=== PATIENT | male | born 1995 | race Caucasian/White ===

== ENCOUNTER 2020-08-11 15:42 | Emergency (ER) | payer SELFPAY | END 2020-08-11 16:34 | disposition home or self-care (01) | LOC: CSHERS 15:42 | DX: L02.414 Cutaneous abscess of left upper limb (principal); L03.114 Cellulitis of left upper limb; F17.210 Nicotine dependence, cigarettes, uncomplicated; Z79.899 Other long term (current) drug therapy | CPT/HCPCS: 99282 ==

== ENCOUNTER 2020-12-04 12:31 | Emergency (ER) | payer SELFPAY ==
[2020-12-04 14:06] LABS: #Basophils 0.1 10x3/uL (0.0-0.2); #Eosinphils 0.1 10x3/uL (0.0-0.5); #Monocytes 0.8 10x3/uL (0.0-1.1); #Neutrophils 6.2 10x3/uL (1.5-8.4); %Basophils 0.8 % (0.0-2.0); %Eosinophils 1.4 % (0.0-6.0); %Lymphocytes 20.6 % (18.0-47.0); %Monocytes 8.4 % (0.0-10.0); %Neutrophils 68.2 % (40.0-75.0); Hemoglobin 15.5 g/dL (13.5-17.5); Mean Corpuscular HGB CONC 34.6 g/dL (32.0-36.0); Mean Corpuscular Hemoglobin 33.1 pg (27.0-33.0); Mean Corpuscular Volume 95.7 fl (81.2-95.1); Mean Platelet Volume 10.7 fl (7.4-10.4); Platelet Count 230 10x3/uL (150-450); RBC Distribution Width 12.4 % (11.5-14.5); Red Blood Cell (RBC) Count 4.68 10x6/uL (4.32-5.72); White Blood Cell (WBC) Count 9.1 10x3/uL (3.5-10.5)
[2020-12-04 14:22] LABS: ALT (SGPT) 144 U/L (8-55); AST (SGOT) 65 U/L (5-34); Albumin 4.1 g/dL (3.5-5.0); Alkaline Phosphatase 90 U/L (40-110); Anion Gap 13 mmol/L (10-20); BUN (Urea Nitrogen) 11 mg/dL (8.9-20.6); Bilirubin, Total 0.4 mg/dL (0.2-1.2); Calc. Creatinine Clearance 0 mL/min (70-130); Calcium 9.6 mg/dL (7.8-10.44); Carbon Dioxide 25 mmol/L (22-29); Chloride 106 mmol/L (98-107); Globulin 2.7 g/dL (2.4-3.5); Glucose 108 mg/dL (70-105); Potassium 4.1 mmol/L (3.5-5.1); Protein, Total 6.8 g/dL (6.0-8.3); Sodium 140 mmol/L (136-145)
[2020-12-04] MEDS ORDERED: Ventolin HFA Inhaler 60 PUFF INHALER ONE (14:45)
[2020-12-04] MEDS ORDERED: predniSONE 20 MG TAB ONE (14:45)
[2020-12-04 15:51] LABS: SARS-CoV-2 NAA Rapid Test Not Detected (NotDetected)
== END 2020-12-04 15:32 | disposition home or self-care (01) ==
LOC: CSHERS 12:31
DX: J45.901 Unspecified asthma with (acute) exacerbation (principal); Z20.822 Contact with and (suspected) exposure to COVID-19; F17.200 Nicotine dependence, unspecified, uncomplicated
CPT/HCPCS: 36415; 71045; 80053; 85025; 87804; 93005; J7512; U0002

== ENCOUNTER 2021-12-08 11:54 | Emergency (ER) | payer SELFPAY | END 2021-12-08 13:11 | disposition home or self-care (01) | LOC: CSHERS 11:54 | DX: H60.501 Unspecified acute noninfective otitis externa, right ear (principal) | CPT/HCPCS: 99282 ==

== ENCOUNTER 2022-03-06 14:48 | Emergency (ER) | payer SELFPAY ==
[2022-03-06] MEDS ORDERED: Morphine 4 MG/ML VIAL ONE (15:27)
[2022-03-06] MEDS ORDERED: Ondansetron PF 4 MG/2 ML Vial ONE (15:27)
[2022-03-06] MEDS ORDERED: Ketorolac Tromethamine 30 MG/ML VIAL ONE (15:27)
[2022-03-06 15:34] LABS: #Basophils 0.1 10x3/uL (0.0-0.2); #Monocytes 0.5 10x3/uL (0.0-1.1); %Basophils 0.5 % (0.0-2.0); %Eosinophils 0.2 % (0.0-6.0); %Lymphocytes 9.9 % (18.0-47.0); %Monocytes 3.6 % (0.0-10.0); %Neutrophils 85.3 % (40.0-75.0); Hemoglobin 16.3 g/dL (13.5-17.5); Mean Corpuscular HGB CONC 35.1 g/dL (32.0-36.0); Mean Corpuscular Hemoglobin 32.6 pg (27.0-33.0); Mean Corpuscular Volume 92.8 fl (81.2-95.1); Mean Platelet Volume 10.5 fl (7.4-10.4); Platelet Count 218 10x3/uL (150-450); RBC Distribution Width 12.2 % (11.5-14.5); White Blood Cell (WBC) Count 12.9 10x3/uL (3.5-10.5)
[2022-03-06 15:48] LABS: ALT (SGPT) 120 U/L (8-55); AST (SGOT) 52 U/L (5-34); Albumin 4.8 g/dL (3.5-5.0); Alkaline Phosphatase 112 U/L (40-110); Anion Gap 19 mmol/L (10-20); BUN (Urea Nitrogen) 17 mg/dL (8.9-20.6); Bilirubin, Total 0.5 mg/dL (0.2-1.2); Calc. Creatinine Clearance 0 mL/min (70-130); Calcium 9.5 mg/dL (7.8-10.44); Carbon Dioxide 20 mmol/L (22-29); Chloride 105 mmol/L (98-107); Estimated GFR 95; Globulin 2.7 g/dL (2.4-3.5); Glucose 132 mg/dL (70-105); Lipase 19 U/L (8-78); Potassium 4.3 mmol/L (3.5-5.1); Protein, Total 7.5 g/dL (6.0-8.3); Sodium 140 mmol/L (136-145)
[2022-03-06 17:00] LABS: Bilirubin Neg (Negative); Blood, Urine 250 (Negative); Clarity Clear (Clear); Glucose, Urine (Dipstick) Normal (Negative); Ketone, Urine 15 mg/dL (Negative); Leukocyte Negative (Negative); Nitrite Negative (Negative); Protein, Urine (Dipstick) 15 mg/dl (Neg-Trace); Specific Gravity, Urine 1.015 (1.005-1.030); Urobilinogen Normal mg/dL (Less than 2)
[2022-03-06 17:04] LABS: Bacteria/HPF None Seen HPF (None Seen); Squamous Epithelial 0-3 HPF (0-3); WBC/HPF 0-3 HPF (0-3)
== END 2022-03-06 17:31 | disposition home or self-care (01) ==
LOC: CSHERS 14:48
DX: N20.0 Calculus of kidney (principal)
CPT/HCPCS: 74176; 80053; 81003; 81015; 83690; 85025; 96361; 96374; 96375; J1885; J2270; J2405

== ENCOUNTER 2022-12-18 11:38 | Emergency (ER) | payer BC, SELFPAY ==
[2022-12-18] MEDS ORDERED: Ketorolac Tromethamine 30 MG/ML VIAL ONE (12:52)
[2022-12-18] MEDS ORDERED: cefTRIAXone (ROCEPHIN) 1 GM VIAL ONE (12:53)
[2022-12-18] MEDS ORDERED: Acetaminophen 500 MG TAB ONE ×3 (12:55→13:07)
[2022-12-18 13:02] LABS: #Basophils 0.1 10x3/uL (0.0-0.2); #Monocytes 0.8 10x3/uL (0.0-1.1); #Neutrophils 6.5 10x3/uL (1.5-8.4); %Basophils 0.6 % (0.0-2.0); %Eosinophils 0.5 % (0.0-6.0); %Monocytes 9.2 % (0.0-10.0); %Neutrophils 79.1 % (40.0-75.0); Hematocrit 44.2 % (38.8-50.0); Hemoglobin 15.6 g/dL (13.5-17.5); Mean Corpuscular HGB CONC 35.3 g/dL (32.0-36.0); Mean Corpuscular Hemoglobin 32.4 pg (27.0-33.0); Mean Corpuscular Volume 91.9 fl (81.2-95.1); Mean Platelet Volume 10.6 fl (7.4-10.4); Platelet Count 171 10x3/uL (150-450); RBC Distribution Width 11.6 % (11.5-14.5); Red Blood Cell (RBC) Count 4.81 10x6/uL (4.32-5.72); White Blood Cell (WBC) Count 8.2 10x3/uL (3.5-10.5)
[2022-12-18 13:17] LABS: ALT (SGPT) 118 U/L (8-55); AST (SGOT) 58 U/L (5-34); Albumin 4.2 g/dL (3.5-5.0); Alkaline Phosphatase 95 U/L (40-110); Anion Gap 16 mmol/L (10-20); BUN (Urea Nitrogen) 11 mg/dL (8.9-20.6); Bilirubin, Total 0.9 mg/dL (0.2-1.2); Calc. Creatinine Clearance 0 mL/min (70-130); Calcium 9.4 mg/dL (7.8-10.44); Carbon Dioxide 21 mmol/L (22-29); Chloride 101 mmol/L (98-107); Estimated GFR 98; Globulin 3.3 g/dL (2.4-3.5); Glucose 119 mg/dL (70-105); Lipase 18 U/L (8-78); Potassium 4.3 mmol/L (3.5-5.1); Protein, Total 7.5 g/dL (6.0-8.3); Sodium 134 mmol/L (136-145)
== END 2022-12-18 14:03 | disposition home or self-care (01) ==
LOC: CSHERS 11:38
DX: S02.5XXA Fracture of tooth (traumatic), initial encounter for closed fracture (principal); K04.7 Periapical abscess without sinus; F17.290 Nicotine dependence, other tobacco product, uncomplicated
CPT/HCPCS: 36415; 80053; 83605; 83690; 85025; 87040; 93005; 96361; 96365; 96375; J0696; J1885

== ENCOUNTER 2023-03-28 14:11 | Emergency (ER) | payer BC ==
[~2023-03-28 14:11] MED LIST: Iopamidol 300 61% 100 ML VIAL FS ONE
[2023-03-28] MEDS ORDERED: Ketorolac Tromethamine 30 MG/ML VIAL ONE (14:42)
[2023-03-28] MEDS ORDERED: Piperacillin/Tazobactam 3.375 GM VIAL ONE (14:42)
[2023-03-28] MEDS ORDERED: Morphine 4 MG/ML VIAL ONE (14:42)
[2023-03-28 14:53] LABS: #Basophils 0.1 10x3/uL (0.0-0.2); #Eosinphils 0.1 10x3/uL (0.0-0.5); #Monocytes 0.9 10x3/uL (0.0-1.1); %Basophils 0.8 % (0.0-2.0); %Eosinophils 0.3 % (0.0-6.0); %Lymphocytes 9.3 % (18.0-47.0); %Neutrophils 83.2 % (40.0-75.0); Hematocrit 42.2 % (38.8-50.0); Hemoglobin 14.8 g/dL (13.5-17.5); Mean Corpuscular HGB CONC 35.1 g/dL (32.0-36.0); Mean Corpuscular Hemoglobin 32.8 pg (27.0-33.0); Mean Corpuscular Volume 93.6 fl (81.2-95.1); Mean Platelet Volume 10.3 fl (7.4-10.4); Platelet Count 209 10x3/uL (150-450); Red Blood Cell (RBC) Count 4.51 10x6/uL (4.32-5.72); White Blood Cell (WBC) Count 14.4 10x3/uL (3.5-10.5)
[2023-03-28 15:15] LABS: ALT (SGPT) 173 U/L (8-55); AST (SGOT) 116 U/L (5-34); Albumin 4.2 g/dL (3.5-5.0); Alkaline Phosphatase 98 U/L (40-110); Anion Gap 17 mmol/L (10-20); BUN (Urea Nitrogen) 8 mg/dL (8.9-20.6); Bilirubin, Total 0.7 mg/dL (0.2-1.2); Calc. Creatinine Clearance 0 mL/min (70-130); Calcium 9.5 mg/dL (7.8-10.44); Carbon Dioxide 22 mmol/L (22-29); Chloride 104 mmol/L (98-107); Estimated GFR 87; Globulin 3.1 g/dL (2.4-3.5); Glucose 142 mg/dL (70-105); Lipase 20 U/L (8-78); Magnesium 1.4 mg/dL (1.6-2.6); Potassium 3.9 mmol/L (3.5-5.1); Protein, Total 7.3 g/dL (6.0-8.3); Sodium 139 mmol/L (136-145)
[2023-03-28 16:00] LABS: SARS-CoV-2 NAA Rapid Test Not Detected (NotDetected)
== END 2023-03-28 17:45 | disposition home or self-care (01) ==
LOC: CSHERS 14:11
DX: R10.9 Unspecified abdominal pain (principal); Z20.822 Contact with and (suspected) exposure to COVID-19; F17.290 Nicotine dependence, other tobacco product, uncomplicated
CPT/HCPCS: 36415; 74177; 80053; 83605; 83690; 83735; 85025; 87040; 93005; 96361; 96374; 96375; J1885; J2270; J2543; Q9967

== ENCOUNTER 2025-01-04 10:02 | Emergency (ER) | payer SELFPAY ==
[2025-01-04] MEDS ORDERED: Acetaminophen 500 MG TAB ONE (10:58)
[2025-01-04 11:28] LABS: #Basophils 0.05 10x3/uL (0.0-0.2); #Eosinophils 0.03 10x3/uL (0.0-0.5); #Monocytes 0.86 10x3/uL (0.0-1.1); #Neutrophils 6.87 10x3/uL (1.5-8.4); %Basophils 0.6 % (0.0-2.0); %Eosinophils 0.3 % (0.0-6.0); %Lymphocytes 10.0 % (18.0-47.0); %Monocytes 9.9 % (0.0-10.0); %Neutrophils 78.6 % (40.0-75.0); Hematocrit 40.9 % (38.8-50.0); Hemoglobin 14.2 g/dL (13.5-17.5); Mean Corpuscular Hemoglobin 34.7 pg (27.0-33.0); Mean Corpuscular Volume 100.0 fL (81.2-95.1); Platelet Count 161 10x3/uL (150-450); Red Blood Cell (RBC) Count 4.09 10x6/uL (4.32-5.72); White Blood Cell (WBC) Count 8.73 10x3/uL (3.5-10.5)
[2025-01-04 11:42] LABS: ALT (SGPT) 77 U/L (Less than 45); AST (SGOT) 188 U/L (11-34); Albumin 3.5 g/dL (3.1-4.5); Alkaline Phosphatase 184 U/L (40-110); Anion Gap 19 mmol/L (10-20); BUN (Urea Nitrogen) 6 mg/dL (8.9-20.6); Bilirubin, Total 1.5 mg/dL (0.3-1.2); Calc. Creatinine Clearance 0 mL/min (70-130); Calcium 8.6 mg/dL (7.8-10.44); Carbon Dioxide 22 mmol/L (22-29); Chloride 98 mmol/L (98-107); Globulin 4.4 g/dL (2.4-3.5); Glucose 122 mg/dL (70-105); Potassium 3.9 mmol/L (3.5-5.1); Sodium 135 mmol/L (136-145)
[2025-01-04 12:39] LABS: Glucose, Urine (Dipstick) Normal (Negative); Leukocyte 25 (Negative); Protein, Urine (Dipstick) 100 mg/dl (Neg-Trace); Specific Gravity, Urine 1.010 (1.005-1.030)
[2025-01-04 12:46] LABS: CAUTI Indications for Culture Fever or rigors; RBC/HPF 0-3 HPF (0-3); WBC/HPF 0-3 HPF (0-3)
[2025-01-04 12:47] LABS: Bacteria/HPF None Seen HPF (None Seen)
[2025-01-04 12:48] LABS: Urine Culture Reflex No No
[2025-01-04] MEDS ORDERED: Ketorolac Tromethamine 30 MG (1 mL) VIAL ONE (12:57)
[2025-01-04] MEDS ORDERED: Ondansetron PF 4 MG/2 ML Vial ONE (12:57)
== END 2025-01-04 14:35 | disposition home or self-care (01) ==
LOC: CSHERS 10:02
DX: A41.9 Sepsis, unspecified organism (principal); B34.9 Viral infection, unspecified; E86.0 Dehydration; F17.290 Nicotine dependence, other tobacco product, uncomplicated
CPT/HCPCS: 36415; 71045; 74176; 80053; 81001; 83605; 83690; 85025; 87040; 87426; 96361; 96374; 96375; J1885; J2405

== ENCOUNTER 2025-01-05 07:01 | Inpatient (IN) | payer SELFPAY ==
[2025-01-05] MEDS ORDERED: Cefepime 2 GM VIAL ONE (07:34)
[2025-01-05] MEDS ORDERED: Ketorolac Tromethamine 30 MG (1 mL) VIAL ONE (07:34)
[2025-01-05 07:48] LABS: #Basophils Less than 0.03 10x3/uL (0.0-0.2); #Eosinophils 0.04 10x3/uL (0.0-0.5); #Monocytes 0.51 10x3/uL (0.0-1.1); #Neutrophils 6.34 10x3/uL (1.5-8.4); %Basophils 0.3 % (0.0-2.0); %Eosinophils 0.5 % (0.0-6.0); %Lymphocytes 5.6 % (18.0-47.0); %Monocytes 6.9 % (0.0-10.0); %Neutrophils 86.2 % (40.0-75.0); Hematocrit 38.5 % (38.8-50.0); Hemoglobin 13.2 g/dL (13.5-17.5); Mean Corpuscular Hemoglobin 34.5 pg (27.0-33.0); Mean Corpuscular Volume 100.5 fL (81.2-95.1); Platelet Count 136 10x3/uL (150-450); Red Blood Cell (RBC) Count 3.83 10x6/uL (4.32-5.72); White Blood Cell (WBC) Count 7.36 10x3/uL (3.5-10.5)
[2025-01-05 07:59] LABS: ALT (SGPT) 71 U/L (Less than 45); AST (SGOT) 204 U/L (11-34); Albumin 3.2 g/dL (3.1-4.5); Alkaline Phosphatase 154 U/L (40-110); Anion Gap 20 mmol/L (10-20); BUN (Urea Nitrogen) 6 mg/dL (8.9-20.6); Bilirubin, Total 2.0 mg/dL (0.3-1.2); CK (CPK) 502 U/L (30-200); Calc. Creatinine Clearance 0 mL/min (70-130); Calcium 8.0 mg/dL (7.8-10.44); Carbon Dioxide 20 mmol/L (22-29); Chloride 98 mmol/L (98-107); Globulin 4.3 g/dL (2.4-3.5); Glucose 123 mg/dL (70-105); Potassium 3.7 mmol/L (3.5-5.1); Sodium 134 mmol/L (136-145)
[2025-01-05] MEDS ORDERED: Melatonin 3 MG TAB PO PRN (08:48)
[2025-01-05] MEDS ORDERED: Senokot S 8.6-50 MG TAB PO PRN (08:48)
[2025-01-05] MEDS ORDERED: VANCOMYCIN IVPB PRN (08:57)
[2025-01-05] MEDS: Folic Acid 1 MG TAB PO SCH (10:12)
[2025-01-05] MEDS: Multivit, Therapeutic 1 TAB PO SCH (10:12)
[2025-01-05] MEDS: Famotidine/PF 20 mg/2ml Vial SLOW IVP SCH (10:13)
[2025-01-05] MEDS: Vancomycin 1 GM in Sodium Chloride 0.9% 250 ML 300 ML IVPB SCH (10:57)
[2025-01-05] MEDS: VANCOMYCIN 1.25 GM/250 ML BAG 1.25 GM in Premix 1 BAG IVPB SCH (11:30)
[2025-01-05] MEDS: Acetaminophen 325 MG TAB PO PRN (11:43)
[2025-01-05 12:22] LABS: Hep A IgM AB NONREACTIVE (NonReactive); Hep A IgM S/CO 0.18 S/CO (0-0.79); Hep B Core IgM Index 0.13 S/CO (0-0.79); Hep C IgG Ab NONREACTIVE S/CO (NonReactive); Hep C Index 0.10 S/CO (0-0.79)
[2025-01-05] MEDS: Ketorolac Tromethamine 30 MG (1 mL) VIAL IVP PRN (12:48)
[2025-01-05 13:03] LABS: Hep B Surf Ag NONREACTIVE S/CO (NonReactive)
[2025-01-05] MEDS: Ondansetron PF 4 MG/2 ML Vial IVP PRN (17:59)
[2025-01-05] MEDS: VANCOMYCIN 2 GRAM/400 ML BAG 2 GM in Premix 1 BAG IVPB SCH (20:37)
[2025-01-05] MEDS ORDERED: Benzonatate 100 MG CAP PO PRN (20:48)
[2025-01-05] MEDS: guaiFENesin/Codeine Phosphate 100 mg/10 mg 5 ml UD Cup PO PRN (21:05)
[2025-01-06] MEDS: Furosemide 40 MG (4 mL) VIAL SLOW IVP SCH (03:27)
[2025-01-06 03:43] LABS: Vancomycin, Random 26.8 ug/mL (See Comment)
[2025-01-06 03:44] LABS: ALT (SGPT) 71 U/L (Less than 45); AST (SGOT) 213 U/L (11-34); Albumin 3.2 g/dL (3.1-4.5); Alkaline Phosphatase 145 U/L (40-110); Anion Gap 20 mmol/L (10-20); BUN (Urea Nitrogen) 9 mg/dL (8.9-20.6); Bilirubin, Total 1.9 mg/dL (0.3-1.2); CK (CPK) 534 U/L (30-200); Calc. Creatinine Clearance 213 mL/min (70-130); Calcium 8.0 mg/dL (7.8-10.44); Carbon Dioxide 17 mmol/L (22-29); Chloride 102 mmol/L (98-107); Globulin 4.6 g/dL (2.4-3.5); Glucose 77 mg/dL (70-105); Potassium 4.3 mmol/L (3.5-5.1); Sodium 135 mmol/L (136-145)
[2025-01-06] MEDS: Furosemide 40 MG (4 mL) VIAL ONE (03:48)
[2025-01-06 04:10] LABS: Magnesium 1.3 mg/dL (1.6-2.6)
[2025-01-06] MEDS ORDERED: Electrolyte Replacement Protocol 1 EACH FS PRN (04:18)
[2025-01-06 04:52] LABS: Troponin I 0.022 ng/mL (< 0.028)
[2025-01-06] MEDS: Magnesium 2 GM/50 ML(in water) 2 GM in Premix 1 BAG IVPB SCH (04:58)
[2025-01-06 05:04] LABS: INR-International Normal Ratio 1.3; PTT 34.0 sec (22.0-33.0); Prothrombin Time 13.6 sec (9.5-12.1)
[2025-01-06 05:17] LABS: SARS-CoV-2 E Target Negative; SARS-CoV-2 N2 Target Negative; SARS-CoV-2 NAA Rapid Test Not Detected (NotDetected); SARS-CoV-2 RdRP gene Negative
[2025-01-06] MEDS: Vancomycin 1.5 GRAM/300 ML BAG 1.5 GM in Premix 1 BAG IVPB SCH (08:37)
[2025-01-07 03:12] LABS: #Basophils Less than 0.03 10x3/uL (0.0-0.2); #Eosinophils Less than 0.03 10x3/uL (0.0-0.5); #Monocytes 0.46 10x3/uL (0.0-1.1); #Neutrophils 4.66 10x3/uL (1.5-8.4); %Basophils 0.2 % (0.0-2.0); %Eosinophils 0.3 % (0.0-6.0); %Lymphocytes 15.3 % (18.0-47.0); %Monocytes 7.5 % (0.0-10.0); %Neutrophils 76.0 % (40.0-75.0); Hematocrit 35.7 % (38.8-50.0); Hemoglobin 12.1 g/dL (13.5-17.5); Mean Corpuscular Hemoglobin 34.9 pg (27.0-33.0); Mean Corpuscular Volume 102.9 fL (81.2-95.1); Platelet Count 143 10x3/uL (150-450); Red Blood Cell (RBC) Count 3.47 10x6/uL (4.32-5.72); White Blood Cell (WBC) Count 6.13 10x3/uL (3.5-10.5)
[2025-01-07 03:47] LABS: Vancomycin, Random 26.3 ug/mL (See Comment)
[2025-01-07 03:48] LABS: ALT (SGPT) 58 U/L (Less than 45); AST (SGOT) 118 U/L (11-34); Albumin 2.7 g/dL (3.1-4.5); Alkaline Phosphatase 117 U/L (40-110); Anion Gap 12 mmol/L (10-20); BUN (Urea Nitrogen) 17 mg/dL (8.9-20.6); Bilirubin, Total 1.1 mg/dL (0.3-1.2); Calc. Creatinine Clearance 218 mL/min (70-130); Calcium 8.0 mg/dL (7.8-10.44); Carbon Dioxide 24 mmol/L (22-29); Chloride 101 mmol/L (98-107); Globulin 4.1 g/dL (2.4-3.5); Glucose 144 mg/dL (70-105); Magnesium 2.5 mg/dL (1.6-2.6); Potassium 4.1 mmol/L (3.5-5.1); Sodium 133 mmol/L (136-145)
[2025-01-07 05:25] VITALS: BMI 38.6
[2025-01-07] MEDS: Mupirocin 1 GM TUBE TP SCH (08:10)
[2025-01-07] MEDS ORDERED: VANCOMYCIN 1.25 GM/250 ML BAG 1.25 GM in Premix 1 BAG IVPB SCH (09:00)
[2025-01-07] MEDS: Simethicone Chewable 80 MG TAB PO PRN (09:08)
[2025-01-07 10:20] VITALS: BP 126/77
[2025-01-07 12:23] VITALS: TEMP 97.9
[2025-01-08 03:02] LABS: Campy jejuni + coli by PCR Negative (Negative); STEC Shiga Toxin 1+2 Negative (Negative); Salmonella spp. by PCR Negative (Negative); Shigella spp + EIEC by PCR Negative (Negative)
== END 2025-01-07 15:20 | disposition left against medical advice (07) | DRG 872 ==
LOC: CSHERS 07:01 → CSHTELE 08:53 → CSHICU 01-06 05:00 → OBSVTOIN 01-06 09:46
PROVIDERS: ADMIT Internal Medicine; ATTEND Internal Medicine
DX: A41.9 Sepsis, unspecified organism (principal); F10.139 Alcohol abuse with withdrawal, unspecified; K76.0 Fatty (change of) liver, not elsewhere classified; F17.210 Nicotine dependence, cigarettes, uncomplicated; R16.0 Hepatomegaly, not elsewhere classified; E83.42 Hypomagnesemia; Z53.29 Procedure and treatment not carried out because of patient's decision for other reasons; Z87.442 Personal history of urinary calculi; Z71.41 Alcohol abuse counseling and surveillance of alcoholic
CPT/HCPCS: 36415; 71045; 76700; 80053; 80074; 80202; 82550; 83605; 83735; 83880; 84100; 84145; 84443; 84484; 85025; 85610; 85730; 87040; 87081; 87324; 87400; 87449; 87505; 93005; 93010; 93306; 94640; 96375; 96376; G0378; J0692; J1308; J1885; J1940; J2405; J2543; J2919; J3373; J3375; J3411; J3475; J7120; J7612; J7620; J7626; U0002